=== PATIENT | female | born 1960 | race Caucasian/White ===

== ENCOUNTER 2016-08-03 09:26 | Emergency (ER) | payer OTHER, MEDICARE ==
[2016-08-03] MEDS ORDERED: Albuterol/Ipratropium NEB.SOL* Albuterol 2.5 MG/Ipratropium 0.5 MG 3 ML INH ONE (09:58)
--- NOTE | 2016-08-03 10:12 | ED ---
Influenza-Like Illness - HPI Summary HPI Summary: Patient is referred to the ED from [facility] where she presented with three days of cough and congestion. The patient has a history of PE and is worried she might also have another PE. She denies fever, chills, CP, MURILLO or neck pain. Her ribs hurt from coughing. - History of Current Complaint Chief Complaint: EDShortnessOfBreath Time Seen by Provider: 08/03/16 09:42 Hx Obtained From: Patient Onset/Duration: Gradual Onset Severity: Moderate Associated Signs & Symptoms: Myalgia, Cough, Nasal Congestion Related Hx: Possible Flu/Infectious Exposure - Allergy/Home Medications Allergies/Adverse Reactions: Allergies Allergy/AdvReac Type Severity Reaction Status Date / Time Clarithromycin [From Biaxin] Allergy Rash And Verified 08/03/16 10:34 Itching PMH/Surg Hx/FS Hx/Imm Hx Respiratory History: Reports: Hx Pulmonary Embolism Infectious Disease History: Denies: Traveled Outside the [place] in Last 30 Days - Family History Known Family History: Positive: None - Social History Occupation: Employed Full-time Lives: With Family Alcohol Use: Occasionally Substance Use Type: Reports: None Smoking Status (MU): Light Every Day Tobacco Smoker Cessation Counseling: Patient Advised to Stop Review of Systems Positive: Fatigue. Negative: Fever, Chills Positive: Sore Throat, Nasal Discharge Negative: Chest Pain Positive: Shortness Of Breath, Cough Positive: Myalgia Negative: Headache, Weakness All Other Systems Reviewed And Are Negative: Yes Physical Exam Triage Information Reviewed: Yes Vital Signs On Initial Exam: Initial Vitals Temp Pulse Resp BP Pulse Ox 98.8 F 92 24 135/68 96 08/03/16 09:31 08/03/16 09:31 08/03/16 09:31 08/03/16 09:31 08/03/16 09:31 Vital Signs Reviewed: Yes Appearance: Positive: Well-Appearing, No Pain Distress, Obese Skin: Positive: Warm, Skin Color Reflects Adequate Perfusion, Dry, Soft Head/Face: Positive: Normal Head/Face Inspection Eyes: Positive: EOMI, MARK, Conjunctiva Clear ENT: Positive: Hearing grossly normal, Pharynx normal, TMs normal Neck: Positive: Supple, Nontender, No Lymphadenopathy Respiratory/Lung Sounds: Positive: Breath Sounds Present, Wheezes. Negative: Rales, Stridor, Tracheal Deviation Cardiovascular: Positive: RRR Abdomen Description: Positive: Nontender, Soft Bowel Sounds: Positive: Present Musculoskeletal: Negative: Edema Left, Edema Right Neurological: Positive: Sensory/Motor Intact, Alert, Oriented to Person Place, Time, NV Bundle Intact Distally, Normal Gait Psychiatric: Positive: Affect/Mood Appropriate AVPU Assessment: Alert Diagnostics - Vital Signs Vital Signs Temp Pulse Resp BP Pulse Ox 08/03/16 10:00 98.7 F 87 19 137/72 99 08/03/16 09:31 98.8 F 92 24 135/68 96 - Laboratory Result Diagrams: 08/03/16 10:13 08/03/16 10:13 Lab Statement: Any lab studies that have been ordered have been reviewed, and results considered in the medical decision making process. - Radiology No standard instances Xray Interpretation: No Acute Changes Radiology Interpretation Completed By: Radiologist Flu Symptom Course/Dx - Diagnoses Differential Diagnosis/HQI/PQRI: Positive: Bronchitis, Influenza, Pneumonia, Upper Respiratory Infection Provider Diagnoses: Viral URI with cough Discharge - Discharge Plan Condition: Stable Disposition: HOME Prescriptions: Acetaminoph/Cod 120/12 mg LIQ* [Tylenol/Codeine 120/12 LIQ*] 5 ml PO Q4H PRN # 120 ml MDD 30 PRN Reason: Cough Patient Education Materials: Viral Syndrome (ED) Referrals: Yung Mckenna MD [Primary Care Provider] - Additional Instructions: Please use the medication provided to reduce symptoms. Drink extra fluids and get plenty of rest. Follow-up with your primary care provider if symptoms do not begin to improve in the next 5-7 days. Return to the emergency department if symptoms worsen.
[2016-08-03] MEDS ORDERED: Acetaminoph/Cod 120/12 mg LIQ* 5 ML UDC PO ONE (10:25)
[2016-08-03 10:31] LABS: Hematocrit 44 % (35-47); Hemoglobin 14.1 g/dl (12.0-16.0); Mean Corpuscular HGB Conc 32 g/dl (31-36); Mean Corpuscular Hemoglobin 27 pg (27-31); Mean Corpuscular Volume 83 fL (80-97); Mean Platelet Volume 10 um3 (7.4-10.4); Red Blood Count 5.23 10^6/ul (4.0-5.4); Red Cell Distribution Width 14 % (10.5-15); White Blood Count 8.2 10^3/ul (3.5-10.8)
[2016-08-03 10:47] LABS: BUN/Creatinine Ratio 13.8 (8-20); Calcium 9.1 mg/dL (8.6-10.3); EGFR African American 86.9 (>60); EGFR Non-African American 67.6 (>60); Globulin 3.1 g/dL (2-4); Potassium 4.1 mmol/L (3.5-5.0); Total Bilirubin 0.5 mg/dL (0.2-1.0); Total Protein 7.1 g/dL (6.4-8.9)
[2016-08-03 11:20] VITALS: BP 115/67
--- NOTE | 2016-08-03 11:21 | RAD ---
INDICATION: Cough, congestion and shortness of breath COMPARISON: Most recent comparison chest x-rays dated March 04, 2016 TECHNIQUE: PA and lateral views of the chest were obtained. FINDINGS: The heart and mediastinum are normal in size and contour. There is faint atherosclerotic calcification overlying the arch of the aorta similar in appearance to the previous chest x-ray. The lungs are grossly clear. There is no evidence of large pleural effusion. Visualized bones are normal for the patient's age. There is no radiographic evidence of free air beneath the diaphragm IMPRESSION: No radiographic evidence of acute cardiopulmonary disease.
== END 2016-08-03 11:15 | disposition home or self-care (01) ==
LOC: ED 09:26
DX: J06.9 Acute upper respiratory infection, unspecified (principal); R06.02 Shortness of breath; R05 Cough; R09.81 Nasal congestion; R53.83 Other fatigue
CPT/HCPCS: 36415; 71020; 80053; 85025; 85379; 94640; 99282; A9270-GY